=== PATIENT | female | born 2000 | race Caucasian/White ===

== ENCOUNTER 2022-09-13 14:05 | Outpatient (CLI) | payer BC, SELFPAY ==
[2022-09-13 16:53] LABS: Hemoglobin A1C 5.3 % (<5.7)
[2022-09-16 04:12] LABS: FSH 7.9 mIU/mL (***); LH 15.9 mIU/mL (***); Prolactin 17.5 ng/mL (***)
[2022-09-17 12:56] LABS: Testosterone Total 49 ng/dL (2-45)
[2022-09-23 21:55] LABS: Estradiol, Ultrasensitive 52 pg/mL
== END 2022-09-13 14:06 | disposition home or self-care (01) ==
PROVIDERS: PCP Student in an Organized Health Care Education/Training Program; Visit Provider Student in an Organized Health Care Education/Training Program
DX: N92.6 Irregular menstruation, unspecified (principal)
CPT/HCPCS: 36415; 82670; 83001; 83002; 83036; 84146; 84403; 84443